=== PATIENT | male | born 1975 | race Caucasian/White ===

== ENCOUNTER 2017-04-25 14:41 | Outpatient (CLI) | payer BC, OTHER | END 2017-04-25 14:42 | disposition critical access hospital (66) | LOC: EMS 14:41 | PROVIDERS: ATTEND Surgery | DX: H53.9 Unspecified visual disturbance (principal); R53.83 Other fatigue | CPT/HCPCS: A0425; A0429 ==

== ENCOUNTER 2017-04-25 14:59 | Inpatient (IN) | payer BC, OTHER ==
[2017-04-25] MEDS ORDERED: PROPARACAINE 0.5% OPHTH DROPS 15 ML EACHEYE STA (15:19)
--- NOTE | 2017-04-25 15:22 | ED Physician Documentation ---
PD HPI FOCAL NEURO - Stated complaint Stated Complaint: R EYE PX/ DIZZY - Chief complaint Chief Complaint: Neuro - History obtained from History obtained from: Patient - History of Present Illness Timing - onset: Other (For the last 2 days he has had pressure in the right eye with difficulty focusing the right eye and he says he has been off balance veering to the left sometimes. It is not associated with headache. He says that his said he was confused today based on the fact that he meant to go into his daughter's room and went into the son's room instead. This is never happened to him before. Other than mild asthma he has no ongoing health issues. ) Review of Systems Ten Systems: 10 systems reviewed and negative Constitutional: reports: Reviewed and negative Nose: reports: Reviewed and negative Cardiac: reports: Reviewed and negative Respiratory: reports: Reviewed and negative PD PAST MEDICAL HISTORY - Past Medical History Past Medical History: No - Present Medications Home Medications: Ambulatory Orders Medication Instructions Recorded Confirmed Albuterol 04/25/17 Fluticasone/Salmeterol [Advair 04/25/17 100-50 Diskus] No Known Home Medications [No 04/25/17 04/25/17 Known Home Medications] - Allergies Allergies/Adverse Reactions: Allergies Allergy/AdvReac Type Severity Reaction Status Date / Time No Known Drug Allergies Allergy Verified 04/25/17 15:12 - Social History Does the pt smoke?: No Does the pt drink ETOH?: No Does the pt have substance abuse?: No - Family History Family history: reports: Non contributory PD ED PE NORMAL - Vitals Vital signs reviewed: Yes - General General: Alert and oriented X 3, No acute distress - HEENT HEENT: PERRL, EOMI, Other ([place] 22R, 25L) - Neck Neck: Supple, no meningeal sign, No bony TTP - Cardiac Cardiac: RRR, No murmur - Respiratory Respiratory: No respiratory distress, Clear bilaterally - Abdomen Abdomen: Normal bowel sounds, Soft, Non tender - Back Back: No CVA TTP, No spinal TTP - Derm Derm: Normal color, Warm and dry - Extremities Extremities: No edema, No calf tenderness / cord - Neuro Neuro: Alert and oriented X 3, Normal speech, Other (Normal Romberg, normal straight gait.) Eye Opening: Spontaneous Motor: Obeys Commands Verbal: Oriented GCS Score: 15 - Psych Psych: Normal mood, Normal affect NIHSS - Time Time: 15:15 - Level of Consciousness Level of consciousness: (0) Alert, Keenly responsive LOC Questions: (0) Answers both Q's correct LOC Commands: (0) Performs both correctly - Gaze Best Gaze: (0) Normal - Visual Visual: (0) No loss - Facial Palsy Facial Palsy: (0) Normal, symmetrical movement - Motor Arms (both separate) Motor Arm (right): (0) No drift Motor Arm (left): (0) No drift - Motor Legs (both separate) Motor Leg (right): (0) No drift Motor Leg (left): (0) No drift - Limb Ataxia Limb Ataxia: (0) Absent - Sensory Sensory: (0) Normal - Best Language Best Language: (0) No aphasia - Dysarthria Dysarthria: (0) Normal - Extinction and Inattention (formally neg Extinction and inattention: (0) No abnormality - Total Score/Results Total Score/Result: 0 Results - Vitals Vitals: Vital Signs - 24 hr 04/25/17 15:09 Temperature 36.9 C Heart Rate 80 Respiratory 16 Rate Blood Pressure 134/82 H O2 Saturation 95 Oxygen O2 Source Room air - EKG (time done) 1804 Rate: Rate (enter#) (57) Rhythm: NSR Sherrill: LAD Intervals: Normal [place] QRS: Normal Ischemia: Normal ST segments Computer interpretation: Agree with computer - Labs Labs: Laboratory Tests 04/25/17 04/25/17 15:45 15:45 WBC 5.0 RBC 5.53 Hgb 15.6 Hct 46.6 MCV 84.2 MCH 28.1 MCHC 33.4 RDW 14.3 Plt Count 184 MPV 8.4 Neut # 2.9 Lymph # 1.2 L Mills # 0.5 Eos # 0.4 Baso # 0.1 Absolute Nucleated RBC 0.01 Nucleated RBC % 0.1 Sodium 141 Potassium 4.2 Chloride 107 Carbon Dioxide 25 Anion Gap 9.0 BUN 15 Creatinine 1.0 Estimated GFR (MDRD) 81 L Glucose 76 Calcium 9.0 Total Bilirubin 0.9 AST 25 ALT 48 Alkaline Phosphatase 73 Total Protein 7.1 Albumin 4.4 Globulin 2.7 Albumin/Globulin Ratio 1.6 Lipase 16 L - Rads (name of study) CT/CTA head Radiology: EMP read contemporaneously (Hypodense lesion in the right thalamus most consistent with an acute stroke, less likely would be mass. There is a little bit of mass-effect.) PD MEDICAL DECISION MAKING - ED course ED course: 42-year-old gentleman with symptoms of pressure behind the right eye, veering to the left and slight confusion over the last 2 days and his stroke scale is negative but regardless is found to have what is likely an acute right thalamic stroke. He was administered aspirin and I spoke with Dr. Degroot for admission at 5:52 PM. Departure - Departure Disposition: 66 [facility] DC/Xfer Clinical Impression: Cerebrovascular accident (CVA) Qualifiers: CVA mechanism: embolism Precerebral and cerebral artery: anterior cerebral artery Laterality of affected vessel: right Qualified Code(s): I63.421 - Cerebral infarction due to embolism of right anterior cerebral artery Condition: Stable
[2017-04-25 16:02] LABS: BASOPHILS # (AUTO) 0.1 10^3/uL (0.0-0.1); BASOPHILS % (AUTO) 1.3 %; EOSINOPHILS # (AUTO) 0.4 10^3/uL (0.0-0.7); EOSINOPHILS % (AUTO) 7.8 %; HGB - HEMOGLOBIN 15.6 g/dL (14.0-18.0); LYMPHOCYTES # (AUTO) 1.2 10^3/uL (1.5-3.5); LYMPHOCYTES % (AUTO) 23.4 %; MEAN CORPUSCULAR HEMOGLOBIN 28.1 pg (27.0-31.0); MEAN CORPUSCULAR HGB CONC 33.4 g/dL (32.0-36.0); MEAN CORPUSCULAR VOLUME 84.2 fL (80.0-94.0); MEAN PLATELET VOLUME 8.4 fL (7.4-11.4); MONOCYTES # (AUTO) 0.5 10^3/uL (0.0-1.0); MONOCYTES % (AUTO) 9.4 %; NEUTROPHILS # (AUTO) 2.9 10^3/uL (1.5-6.6); NEUTROPHILS % (AUTO) 58.1 %; PLT - PLATELET COUNT 184 10^3/uL (130-450); RED BLOOD COUNT 5.53 10^6/uL (4.70-6.10); RED CELL DISTRIBUTION WIDTH 14.3 % (12.0-15.0)
[2017-04-25 16:16] LABS: ALBUMIN 4.4 g/dL (3.2-5.5); ALBUMIN/GLOBULIN RATIO 1.6 (1.0-2.2); BILIRUBIN,TOTAL 0.9 mg/dL (0.2-1.0); TOTAL PROTEIN 7.1 g/dL (6.7-8.2)
[2017-04-25] MEDS ORDERED: IOPAMIDOL-300 100 ML VIAL ONE (16:36)
[2017-04-25] MEDS ORDERED: ASPIRIN CHEW 81 MG TABLET PO STA (17:50)
--- NOTE | 2017-04-25 17:50 | CT Preliminary Report ---
Exam: CT HEAD ANGIO Impression: Head CT 1. There is a roughly 1.3 x 1.3 cm hypodensity centered in the anterior right thalamus. There appears be mild localized mass effect with focal effacement of the third ventricle. No enhancement is demons trated. This probably relates to recent infarction. MRI would be helpful in further evaluation. 2. Otherwise unremarkable head CT. CT angiogram head Unremarkable study. No evidence of occlusion or hemodynamically significant stenosis affecting main b ranches of the anterior or posterior circulations. In addition, no intracranial aneurysm is identifie d. SITE ID: [id number]
[2017-04-25] MEDS ORDERED: oxyCODONE 5 MG TABLET PO PRN (17:53)
[2017-04-25] MEDS ORDERED: PROCHLORPERAZINE 10 MG/2 ML VIAL IVP PRN (17:53)
[2017-04-25] MEDS ORDERED: SODIUM CHLORIDE FLUSH 0.9% 10 ML SYRINGE IVP PRN (17:53)
[2017-04-25] MEDS ORDERED: TEMAZEPAM 15 MG CAPSULE PO PRN (17:53)
--- NOTE | 2017-04-25 18:14 | CT Report ---
CT HEAD WITHOUT AND WITH CONTRAST AND CT ANGIOGRAM HEAD INDICATION: 42-year-old male with 2 day history of feeling off balance and blurred vision in right ey e. Please assess. TECHNIQUE: Head CT Sequential 5 mm axial images were obtained through the brain, prior to and following the CT angiogram . CT angiogram head 80 mL of Isovue-300 contrast were injected at a rapid rate through a large bore, antecubital intraven ous catheter. The head was scanned helically during arterial phase. Data was reconstructed into 0.5 m m axial images. In addition, MIP reconstructions have been generated in multiple projections to allow better assessment of the intracranial arteries. In accordance with CT protocol optimization, one or more of the following dose reduction techniques w ere utilized for this exam: automated exposure control, adjustment of mA and/or KV based on patient s ize, or use of iterative reconstructive technique. COMPARISON: None. FINDINGS: Head CT There is mild generalized prominence of the cerebral cortical sulci. Ventricular size is normal. There is a roughly 1.3 x 1.3 cm hypodense lesion, centered in the anterior right thalamus with possib le extension laterally to involve the posterior limb of the right internal capsule. There appears be mild associated mass effect with focal effacement of the third ventricle. No enhancement of this lesi on is identified on postcontrast sequences. Attenuation of cortex and white matter is otherwise solo l. No intracranial hemorrhage. No enhancing space-occupying mass lesion is demonstrated. There appears be normal intravascular contr ast enhancement in the dural venous sinuses and deep venous structures. Noted is a rounded, roughly 1.5 cm diameter, midline retrocerebellar extra-axial fluid collection. Th is probably represents an arachnoid cyst. There appears be associated mass effect including a scalpin g of the inner table of the overlying squamous occipital bone. No significant mass effect on the cere bellum or vermis. The clinical significance of this presumed posterior fossa arachnoid cyst is doubtf ul. The mastoid air cells and middle ear cavities are clear. The imaged paranasal sinuses appear clear. CT angiogram head Anterior circulation: The internal carotid arteries appear widely patent bilaterally. No ICA aneurysm is demonstrated. The A1 segments of the anterior cerebral arteries are essentially codominant. An anterior communicating a rtery is demonstrated. There appears be good filling of the A2 and distal AMANDA branches bilaterally. N o obvious AMANDA branch occlusion is demonstrated. The middle cerebral arteries are unremarkable. No aneurysm is demonstrated and there is no evidence o f occlusion or hemodynamically significant stenosis affecting main branches of either MCA. There appe ar to be a similar number of opacified M3 and M4 branches bilaterally. Posterior circulation: The vertebral arteries and PICAs appear widely patent. No aneurysm at either PICA origin. The basilar artery, superior cerebellar arteries and posterior cerebral arteries appear widely patent. 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 There is a fairly large l eft posterior communicating artery that supplies the P2 and distal left BUMP GRADER OPERATOR branches. This represents a known anatomical variant ( type left BUMP GRADER OPERATOR). There probably is a tiny right posterior communica ting artery. No aneurysms are identified arising from the basilar artery trunk or apex. IMPRESSION: Head CT 1. There is a roughly 1.3 x 1.3 cm hypodensity centered in the anterior right thalamus. There appears be mild localized mass effect with focal effacement of the third ventricle. No enhancement is demons trated. This probably relates to recent infarction. MRI would be helpful in further evaluation. 2. Otherwise unremarkable head CT. CT angiogram head Unremarkable study. No evidence of occlusion or hemodynamically significant stenosis affecting main b ranches of the anterior or posterior circulations. In addition, no intracranial aneurysm is identifie d. Critical result: A preliminary report for this examination was called to Josue Zapata following assessment on 04/02 at approximately 1748 hrs. Referring Provider Line: [phone] SITE ID: [id number]
[2017-04-25 18:22] LABS: PT - PROTHROMBIN TIME 11.8 secs (9.9-12.6)
[2017-04-25] MEDS ORDERED: ASPIRIN CHEW 81 MG TABLET ONE (18:31)
--- NOTE | 2017-04-25 18:31 | HISTORY & PHYSICAL EXAMINATION ---
Chief Complaint - Chief Complaint Chief Complaint: pressure Behind right eye, confusion, balance issues History of Present Illness - Admitted From Admitted From:: Home - History Obtained From History obtained from: Patient and Dr. Milligan Exam Limitations: None noted - History of Present Illness HPI Comment/Other: Mr. Mati Escalera is a very pleasant 42-year-old gentleman who has been having difficulties since Wednesday morning when he woke. He slept in which was unusual for him and he has been sleeping and since that time, he also has had some slurring of speech and increasing confusion. His last complaint is that his balance seems to be "off". He came to [facility] emergency department where he was evaluated and not felt to be high risk for stroke however CT angiogram found a right thalamic infarction/mass. History - Past Medical History Cardiovascular: reports: None Respiratory: reports: Asthma MRSA Hx?: No - Past Surgical History Other past surgical history: Removal of a cyst from the patient's posterior scalp - Family & Social History Family History: Mother: , Cancer (breast,Multiple cancers throughout maternal side of family), Father: Alive and Well, Hypertension, Other family: CAD, Hyperlipidemia, Hypertension Living arrangement: At home Living Situation: With spouse/s.o. - Substance History Use: Uses substance without health or social issues: Alcohol Abuse: Recurrent use of substance despite neg consequences: NONE Dependence: Experiences withdrawal or developed tolerances: NONE - POLST Patient has POLST: No POLST Status: Full Code Meds/Allgy - Home Medications Home Medications: Ambulatory Orders Medication Instructions Recorded Confirmed Albuterol 04/25/17 Fluticasone/Salmeterol [Advair 04/25/17 100-50 Diskus] No Known Home Medications [No 04/25/17 04/25/17 Known Home Medications] - Allergies Allergies/Adverse Reactions: Allergies Allergy/AdvReac Type Severity Reaction Status Date / Time No Known Drug Allergies Allergy Verified 04/25/17 15:12 Review of Systems - Constitutional Constitutional: denies: Fatigue, Fever, Chills, Malaise - Eyes Eyes: reports: Pain (behind r eye). denies: Irritation, Amaurosis, Blurred vision, Vision loss, Dipolpia - Ears, Nose & Throat Ears, Nose & Throat: reports: Vertigo. denies: Ear pain, Hearing loss, Hearing aids, Tinnitus, Nosebleeds, Dentures - Cardiovascular Cariovascular: denies: Irregular heart rate, Palpitations, Chest pain, Edema, Syncope - Respiratory Respiratory: denies: Cough, Sputum production, Wheezing, Snoring, Hemoptysis, Orthopnea, SOB at rest, SOB with exertion - Gastrointestinal Gastrointestinal: denies: Abdominal pain, Abdominal distention, Constipation, Diarrhea, Change in bowel habits, Rectal bleeding - Genitourinary Genitourinary: denies: Dysuria, Frequency, Urgency, Hematuria - Musculoskeletal Musculoskeletal: denies: Muscle pain, Back pain, Muscle aches, Stiffness - Integumentary Integumentary: denies: Rash, Pruritis, Lesions, Dryness - Neurological Neurological: reports: Memory problems, Other (Patient has been leaning towards the right). denies: General weakness, Focal weakness - Psychiatric Psychiatric: denies: Depression, Anxiety, Suicidal, Hallucinations - Endocrine Endocrine: denies: Polyuria, Polydypsia, Polyphagia - Hematologic/Lymphatic Hematologic/Lymphatic: denies: Anemia, Bruising, Petechiae, Lymphadenopathy - All Other Systems All Other Systems: reports: Reviewed and negative Exam - Vital Signs Reviewed Vital Signs: Yes Vital Signs: Vital Signs x48h Temp Pulse Resp BP Pulse Ox 04/25/17 15:09 36.9 C 80 16 134/82 H 95 - Physical Exam General Appearance: positive: No acute distress, Alert Eyes Bilateral: positive: Normal inspection, PERRL, EOMI, No lid inflammation, Conjunctivae nml, No scleral icterus ENT: positive: ENT inspection nml, Pharynx nml, No signs of dehydration Neck: positive: Nml inspection, Thyroid nml, No JVD, Trachea midline. negative : Thyromegaly Respiratory: positive: Chest non-tender, No respiratory distress, Breath sounds nml. negative: Wheezes, Rales, Rhonchi Cardiovascular: positive: Regular rate & rhythm, No murmur, No gallop Peripheral Pulses: positive: 2+ Abdomen: positive: Non-tender, No organomegaly, Nml bowel sounds, No distention. negative: Guarding, Rebound Back: positive: Nml inspection. negative: CVA tenderness (R), CVA tenderness (L ) Skin: positive: Color nml, No rash, Warm, Dry. negative: Cyanosis Extremities: positive: Non-tender, Full ROM, Nml appearance, No pedal edema Neurologic/Psychiatric: positive: Oriented x3, CN's nml (2-12), Motor nml, Sensation nml, Mood/affect nml Conclusion/Plan - Problem List (1) Thalamic infarct, acute Conclusion/Plan: We will admit the patient to a medical surgical bed, will obtain a carotid Doppler, MRI of the brain, transthoracic echocardiogram and CT angiogram of the head. We will continue the patient on aspirin for anticoagulation and continue him on his home medications for asthma. (2) History of asthma Conclusion/Plan: No evidence of asthma at this time. We will continue the patient on his albuterol and Advair from home. - Lab Results Fish Bones: 04/25/17 15:45 04/25/17 15:45 - Diagnostic Imaging Results Diagnostic Imaging Results: positive: Final report reviewed Diagnostic Imaging Results Comments: EXAM: [id number] CT/HEADANG (21114) CT HEAD WITHOUT AND WITH CONTRAST AND CT ANGIOGRAM HEAD INDICATION: 42-year-old male with 2 day history of feeling off balance and blurred vision in right eye. Please assess. TECHNIQUE: Head CT Sequential 5 mm axial images were obtained through the brain, prior to and following the CT angiogram. CT angiogram head 80 mL of Isovue-300 contrast were injected at a rapid rate through a large bore , antecubital intravenous catheter. The head was scanned helically during arterial phase. Data was reconstructed into 0.5 mm axial images. In addition, MIP reconstructions have been generated in multiple projections to allow better assessment of the intracranial arteries. In accordance with CT protocol optimization, one or more of the following dose reduction techniques were utilized for this exam: automated exposure control, adjustment of mA and/or KV based on patient size, or use of iterative reconstructive technique. COMPARISON: None. FINDINGS: Head CT There is mild generalized prominence of the cerebral cortical sulci. Ventricular size is normal. There is a roughly 1.3 x 1.3 cm hypodense lesion, centered in the anterior right thalamus with possible extension laterally to involve the posterior limb of the right internal capsule. There appears be mild associated mass effect with focal effacement of the third ventricle. No enhancement of this lesion is identified on postcontrast sequences. Attenuation of cortex and white matter is otherwise normal. No intracranial hemorrhage. No enhancing space-occupying mass lesion is demonstrated. There appears be normal intravascular contrast enhancement in the dural venous sinuses and deep venous structures. Noted is a rounded, roughly 1.5 cm diameter, midline retrocerebellar extra- axial fluid collection. This probably represents an arachnoid cyst. There appears be associated mass effect including a scalping of the inner table of the overlying squamous occipital bone. No significant mass effect on the cerebellum or vermis. The clinical significance of this presumed posterior fossa arachnoid cyst is doubtful. The mastoid air cells and middle ear cavities are clear. The imaged paranasal sinuses appear clear. CT angiogram head Anterior circulation: The internal carotid arteries appear widely patent bilaterally. No ICA aneurysm is demonstrated. The A1 segments of the anterior cerebral arteries are essentially codominant. An anterior communicating artery is demonstrated. There appears be good filling of the A2 and distal AMANDA branches bilaterally. No obvious AMANDA branch occlusion is demonstrated. The middle cerebral arteries are unremarkable. No aneurysm is demonstrated and there is no evidence of occlusion or hemodynamically significant stenosis affecting main branches of either MCA. There appear to be a similar number of opacified M3 and M4 branches bilaterally. Posterior circulation: The vertebral arteries and PICAs appear widely patent. No aneurysm at either PICA origin. The basilar artery, superior cerebellar arteries and posterior cerebral arteries appear widely patent. 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 There is a fairly large left posterior communicating artery that supplies the P2 and distal left CONTRACT TECHNICAL WRITER branches. This represents a known anatomical variant ( type left CONTRACT TECHNICAL WRITER). There probably is a tiny right posterior communicating artery. No aneurysms are identified arising from the basilar artery trunk or apex. IMPRESSION: Head CT 1. There is a roughly 1.3 x 1.3 cm hypodensity centered in the anterior right thalamus. There appears be mild localized mass effect with focal effacement of the third ventricle. No enhancement is demonstrated. This probably relates to recent infarction. MRI would be helpful in further evaluation. 2. Otherwise unremarkable head CT. CT angiogram head Unremarkable study. No evidence of occlusion or hemodynamically significant stenosis affecting main branches of the anterior or posterior circulations. In addition, no intracranial aneurysm is identified. - EKG Results EKG Interpreted Independently: Yes EKG Comparison: No prior EKG EKG Findings: Normal sinus rhythm Core Measures - Anticipated LOS I expect patient to be DC'd or transferred within 96 hours.: Yes - DVT/VTE - Prophylaxis VTE/DVT Device ordered at admit?: Yes
[2017-04-25] MEDS: ATORVASTATIN 40 MG TABLET PO SCH (20:16)
--- NOTE | 2017-04-25 21:19 | Ultrasound Preliminary Report ---
Exam: US CAROTID DOPPLER COMPLETE IMPRESSION: No hemodynamically significant stenoses. Validated velocity measurements with angiographic measurements and velocity criteria are extrapolated from diameter data as defined by the Society of Radiologists in Ultrasound Consensus Conference Radi ology 2003; 229;340-346. RADIA SITE ID: [id number]
--- NOTE | 2017-04-25 21:37 | Ultrasound Report ---
EXAM: CAROTID DOPPLER ULTRASOUND EXAM DATE: 04/25/2017 08:20 PM. CLINICAL HISTORY: Right thalamic infarct. COMPARISON: None. TECHNIQUE: Real-time sonographic vascular imaging was performed by the flight service agent through the caroti d arterial system with a linear transducer utilizing color-flow, Doppler flow and spectral analysis. Multiple architectural representative static images were saved for review. FINDINGS: Right: RCCA Prox: PSV 88.2 cm/sec. RCCA Dist: PSV 60.8 cm/sec, EDV 19.1 cm/sec. RECA: PSV 83.7 cm/sec. R Bulb: PSV 39.9 cm/sec, EDV 0.4 cm/sec, ICA/CCA ratio 0.7. FELIBERTO Prox: PSV 63.3 cm/sec, EDV 29.3 cm/sec, ICA/CCA ratio 1.0. FELIBERTO Mid: PSV 67.6 cm/sec, EDV 31.0 cm/sec, ICA/CCA ratio 1.1, . FELIBERTO Dist: PSV 79.0 cm/sec, EDV 38.3 cm/sec, ICA/CCA ratio 1.3. RVA: PSV 45.5 cm/sec. RVA flow direction: Antegrade. Left: LCCA Prox: PSV 82.4 cm/sec. LCCA Dist: PSV 55.7 cm/sec, EDV 16.6 cm/sec. LECA: PSV 54.8 cm/sec. L Bulb: PSV 45.5 cm/sec, EDV 11.1 cm/sec, ICA/CCA ratio 0.8. LICA Prox: PSV 48.2 cm/sec, EDV 17.9 cm/sec, ICA/CCA ratio 0.9. LICA Mid: PSV 56.0 cm/sec, EDV 26.3 cm/sec, ICA/CCA ratio 1.0. LICA Dist: PSV 52.1 cm/sec, EDV 28 cm/sec, ICA/CCA ratio 0.9. LVA: PSV 44.8 cm/sec. LVA flow direction: Antegrade. Other: Mild calcified plaque bilaterally, left greater than right. IMPRESSION: No hemodynamically significant stenoses. Validated velocity measurements with angiographic measurements and velocity criteria are extrapolated from diameter data as defined by the Society of Radiologists in Ultrasound Consensus Conference Radi ology 2003; 229;340-346. RADIA Referring Provider Line: [phone] SITE ID: [id number]
[2017-04-25] MEDS: SODIUM CHLORIDE FLUSH 0.9% 10 ML SYRINGE IVP SCH (23:45)
[2017-04-26 06:00] LABS: HGB - HEMOGLOBIN 15.4 g/dL (14.0-18.0); MEAN CORPUSCULAR HEMOGLOBIN 28.4 pg (27.0-31.0); MEAN CORPUSCULAR HGB CONC 33.7 g/dL (32.0-36.0); MEAN CORPUSCULAR VOLUME 84.3 fL (80.0-94.0); MEAN PLATELET VOLUME 8.4 fL (7.4-11.4); RED BLOOD COUNT 5.41 10^6/uL (4.70-6.10); RED CELL DISTRIBUTION WIDTH 14.5 % (12.0-15.0); WHITE BLOOD COUNT 4.7 x10^3/uL (4.8-10.8)
[2017-04-26 06:09] LABS: CALCIUM 8.6 mg/dL (8.5-10.3); CREATININE 0.9 mg/dL (0.6-1.2)
[2017-04-26] MEDS ORDERED: IOPAMIDOL-300 100 ML VIAL IVP ONE (07:24)
[2017-04-26] MEDS ORDERED: ASPIRIN 300 MG SUPP PR SCH (09:00)
[2017-04-26] MEDS: ASPIRIN CHEW 81 MG TABLET PO SCH (09:40)
[2017-04-26] MEDS: LISINOPRIL 5 MG TABLET PO SCH (09:40)
[2017-04-26] MEDS: SODIUM CHLORIDE FLUSH 0.9% 10 ML SYRINGE IVP SCH ×2 (09:41→18:36)
[2017-04-26] MEDS: POLYETHYLENE GLYCOL 3350 17 GM PACKET PO SCH (09:42)
[2017-04-26] MEDS ORDERED: ALBUTEROL NEB 2.5 MG/3 ML INH PRN (10:06)
--- NOTE | 2017-04-26 12:20 | MRI Preliminary Report ---
Exam: MRI BRAIN W/O Impression: 1. Follow-up MRI confirms that the lesion in anterior right thalamus relates to recent (probably 7 da ys old or less closing. Arch and appear in very mild localized mass effect is demonstrated with parti al effacement of the third ventricle. No beginning hemorrhage is identified. The infarction also appe ars to involve the right mamillary body (see image 104 of series 305 and image 13 of series 601 closi ng.. 2. Also demonstrated are small foci of encephalomalacia in the right cerebellum, consistent with the sequela of remote, minor, embolic type ischemic infarctions. The etiology for these recent and remote infarctions in this young individual (42 years closing. It i s unclear. No evidence of vasculitis or other intracranial arterial pathology on recent head CTA. Con shop tech further assessment with neck CTA or MRA. 3. A minor amount of white matter disease is identified in the supratentorial brain. The etiology is uncertain. Differential diagnostic considerations would include virtually the entire gambling and whi te matter disease. However, the clinical significance is doubtful. SITE ID: [id number]
--- NOTE | 2017-04-26 12:34 | MRI Report ---
MRI BRAIN WITHOUT CONTRAST INDICATION: 42-year-old male with complaints of pressure behind right eye, confusion, slurred speech and balance issues. Has hypodensity in the right thalamus on head CT, concerning for recent infarctio n. MRI has been requested in further evaluation. TECHNIQUE: 1. T1 sagittal and fat-saturated T2 coronal. 2. Axial T1 MP RAGE, FLAIR, T2, T2* and DWI. COMPARISON: Head CT 04/25/2017. FINDINGS: Ventricular size is normal. There is a roughly 1.7 x 1.8 cm, confluent region of T2/FLAIR hyperintensity and diffusion restrictio n in the anterior aspect of the right thalamus. Laterally there probably is extension to involve the posterior limb of the internal capsule. There is no surrounding edema. There is mild localized mass e ffect with partial effacement of the third ventricle. Imaging findings are consistent with acute to e farida subacute infarction. The infarction also appears to involve the right mamillary body. No other diffusion restriction is demonstrated. There appear to be flow voids for the main intracranial arteries. No evidence of acute or chronic hemorrhage on T2*GRE sequence. A very mild amount of white matter disease is identified in the supratentorial brain, manifested as s mall T2 hyperintensities that are scattered throughout the deep and subcortical white matter in the f rontal lobes. A small (4 x 2 mm) T2 hyperintense/T1 hypointense focus is identified in the left thalamus. However, the high T2 signal completely suppresses on the axial T2 FLAIR sequence, suggesting that this represe nts a dilated perivascular space rather than gliosis or other pathology. A roughly 6.5 x 2.5 mm focus of encephalomalacia is identified in the mesial, posterior right cerebel lum (see image 8 of series 601 and image 26 of series 901). Consistent with the sequela of remote, mi nor, embolic type ischemic infarction. In addition, 2 subtle, tiny T2 hyperintensities are seen in th e mid right cerebellum (see image 7 of series 601 and image 23 of series 901). Also, probably the seq uela of remote, minor, embolic-type infarctions. No abnormal extraaxial fluid collection. No midline shift. Limited assessment of the orbits reveals no gross pathology. There is minimal mucosal thickening in the left maxillary sinus and in a few ethmoid air cells. The p aranasal sinuses are otherwise clear. No mastoid or middle ear effusion is demonstrated. IMPRESSION: 1. Follow-up MRI confirms that the lesion in anterior right thalamus relates to recent (probably 7 da ys old or less) infarction. No complicating hemorrhage. Very mild localized mass effect is demonstrat ed with partial effacement of the third ventricle. The infarction also appears to involve the right m amillary body (see image 104 of series 305 and image 13 of series 601). 2. Also demonstrated are small foci of encephalomalacia in the right cerebellum, consistent with the sequela of remote, minor, embolic type ischemic infarctions. The etiology for these recent and remote infarctions in this young individual is unclear. No evidence of vasculitis or other intracranial arterial pathology on recent head CTA. Consider further assessme nt with neck CTA or MRA. 3. A minor amount of white matter disease is identified in the supratentorial brain. The etiology is uncertain. Differential diagnostic considerations would include virtually the entire gamut of white m atter disease. However, the clinical significance is doubtful. Referring Provider Line: [phone] SITE ID: [id number]
[2017-04-26] MEDS ORDERED: ALBUTEROL NEB 2.5 MG/3 ML INH SCH (13:00)
--- NOTE | 2017-04-26 18:30 | PROVIDER PROGRESS NOTE ---
Subjective - Prog Note Date Prog Note Date: 04/26/17 Prog Note Time: 16:50 - Subjective Pt reports feeling: Improved (The patient says his confusion is a little bit better today and he was a little bit less wobbly when he ambulated to the bathroom. He denies any pain, shortness of breath, fever, or chills.) Current Medications - Current Medications Current Medications: Albuterol, aspirin, atorvastatin, budesonide, formoterol, lisinopril, oxycodone , polyethylene glycol, Compazine, sodium chloride, temazepam Objective - Vital Signs/Intake & Output Reviewed Vital Signs: Yes Vital Signs: Vital Signs x48h Temp Pulse Pulse Resp BP Pulse Ox 04/26/17 15:48 36.5 C 67 20 107/77 93 04/26/17 13:00 36.5 C 68 18 124/84 H 95 Intake & Output: Intake & Output 04/23/17 04/24/17 04/25/17 04/26/17 23:59 23:59 23:59 23:59 Intake Total 150 340 Balance 150 340 - Objective General Appearance: positive: No acute distress, Alert Eyes Bilateral: positive: Normal inspection, PERRL, EOMI, No lid inflammation, Conjunctivae nml, No scleral icterus ENT: positive: ENT inspection nml, Pharynx nml, No signs of dehydration Neck: positive: Nml inspection, Thyroid nml, No JVD, Trachea midline. negative : Thyromegaly Respiratory: positive: Chest non-tender, No respiratory distress, Breath sounds nml. negative: Wheezes, Rales, Rhonchi Cardiovascular: positive: Regular rate & rhythm, No murmur, No gallop Abdomen: positive: Non-tender, No organomegaly, Nml bowel sounds, No distention. negative: Tenderness Back: positive: Nml inspection. negative: CVA tenderness (R), CVA tenderness (L ) Skin: positive: Color nml, No rash, Warm, Dry. negative: Cyanosis Extremities: positive: Non-tender, Full ROM, Nml appearance. negative: No pedal edema Neurologic/Psychiatric: positive: Oriented x3, CN's nml (2-12), Motor nml, Sensation nml, Mood/affect nml - Lab Results Fish Bones: 04/26/17 05:33 04/26/17 05:33 Other Labs: Lab Results x24hrs 04/26/17 04/26/17 04/25/17 Range/Units 05:33 05:33 19:22 WBC 4.7 L (4.8-10.8) x10^3/uL RBC 5.41 (4.70-6.10) 10^6/uL Hgb 15.4 (14.0-18.0) g/dL Hct 45.6 (42.0-52.0) % MCV 84.3 (80.0-94.0) fL MCH 28.4 (27.0-31.0) pg MCHC 33.7 (32.0-36.0) g/dL RDW 14.5 (12.0-15.0) % Plt Count 168 (130-450) 10^3/uL MPV 8.4 (7.4-11.4) fL Sodium 138 (135-145) mmol/L Potassium 4.0 (3.5-5.0) mmol/L Chloride 110 (101-111) mmol/L Carbon Dioxide 22 (21-32) mmol/L Anion Gap 6.0 (6-13) BUN 14 (6-20) mg/dL Creatinine 0.9 (0.6-1.2) mg/dL Estimated GFR (MDRD) 92 (>89) Glucose 94 (70-100) mg/dL POC Whole Bld Glucose 95 (70 - 100) mg/dL Calcium 8.6 (8.5-10.3) mg/dL - Diagnostic Imaging Diagnostic Imaging Results: positive: Final report reviewed Diagnostic Imaging Comments: CT HEAD WITHOUT AND WITH CONTRAST AND CT ANGIOGRAM HEAD INDICATION: 42-year-old male with 2 day history of feeling off balance and blurred vision in right eye. Please assess. TECHNIQUE: Head CT Sequential 5 mm axial images were obtained through the brain, prior to and following the CT angiogram. CT angiogram head 80 mL of Isovue-300 contrast were injected at a rapid rate through a large bore , antecubital intravenous catheter. The head was scanned helically during arterial phase. Data was reconstructed into 0.5 mm axial images. In addition, MIP reconstructions have been generated in multiple projections to allow better assessment of the intracranial arteries. In accordance with CT protocol optimization, one or more of the following dose reduction techniques were utilized for this exam: automated exposure control, adjustment of mA and/or KV based on patient size, or use of iterative reconstructive technique. COMPARISON: None. FINDINGS: Head CT There is mild generalized prominence of the cerebral cortical sulci. Ventricular size is normal. There is a roughly 1.3 x 1.3 cm hypodense lesion, centered in the anterior right thalamus with possible extension laterally to involve the posterior limb of the right internal capsule. There appears be mild associated mass effect with focal effacement of the third ventricle. No enhancement of this lesion is identified on postcontrast sequences. Attenuation of cortex and white matter is otherwise normal. No intracranial hemorrhage. No enhancing space-occupying mass lesion is demonstrated. There appears be normal intravascular contrast enhancement in the dural venous sinuses and deep venous structures. Noted is a rounded, roughly 1.5 cm diameter, midline retrocerebellar extra- axial fluid collection. This probably represents an arachnoid cyst. There appears be associated mass effect including a scalping of the inner table of the overlying squamous occipital bone. No significant mass effect on the cerebellum or vermis. The clinical significance of this presumed posterior fossa arachnoid cyst is doubtful. The mastoid air cells and middle ear cavities are clear. The imaged paranasal sinuses appear clear. CT angiogram head Anterior circulation: The internal carotid arteries appear widely patent bilaterally. No ICA aneurysm is demonstrated. The A1 segments of the anterior cerebral arteries are essentially codominant. An anterior communicating artery is demonstrated. There appears be good filling of the A2 and distal AMANDA branches bilaterally. No obvious AMANDA branch occlusion is demonstrated. The middle cerebral arteries are unremarkable. No aneurysm is demonstrated and there is no evidence of occlusion or hemodynamically significant stenosis affecting main branches of either MCA. There appear to be a similar number of opacified M3 and M4 branches bilaterally. Posterior circulation: The vertebral arteries and PICAs appear widely patent. No aneurysm at either PICA origin. The basilar artery, superior cerebellar arteries and posterior cerebral arteries appear widely patent. 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 There is a fairly large left posterior communicating artery that supplies the P2 and distal left JOB COUNSELOR branches. 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 There probably is a tiny right posterior communicating artery. No aneurysms are identified arising from the basilar artery trunk or apex. IMPRESSION: Head CT 1. There is a roughly 1.3 x 1.3 cm hypodensity centered in the anterior right thalamus. There appears be mild localized mass effect with focal effacement of the third ventricle. No enhancement is demonstrated. This probably relates to recent infarction. MRI would be helpful in further evaluation. 2. Otherwise unremarkable head CT. CT angiogram head Unremarkable study. No evidence of occlusion or hemodynamically significant stenosis affecting main branches of the anterior or posterior circulations. In addition, no intracranial aneurysm is identified. Critical result: A preliminary report for this examination was called to Josue Zapata following assessment on at approximately 1748 hrs. EXAM: CAROTID DOPPLER ULTRASOUND EXAM DATE: 04/25/2017 08:20 PM. CLINICAL HISTORY: Right thalamic infarct. COMPARISON: None. TECHNIQUE: Real-time sonographic vascular imaging was performed by the steerer through the carotid arterial system with a linear transducer utilizing color-flow, Doppler flow and spectral analysis. Multiple data entry representative static images were saved for review. FINDINGS: Right: RCCA Prox: PSV 88.2 cm/sec. RCCA Dist: PSV 60.8 cm/sec, EDV 19.1 cm/sec. RECA: PSV 83.7 cm/sec. R Bulb: PSV 39.9 cm/sec, EDV 0.4 cm/sec, ICA/CCA ratio 0.7. FELIBERTO Prox: PSV 63.3 cm/sec, EDV 29.3 cm/sec, ICA/CCA ratio 1.0. FELIBERTO Mid: PSV 67.6 cm/sec, EDV 31.0 cm/sec, ICA/CCA ratio 1.1, . FELIBERTO Dist: PSV 79.0 cm/sec, EDV 38.3 cm/sec, ICA/CCA ratio 1.3. RVA: PSV 45.5 cm/sec. RVA flow direction: Antegrade. Left: LCCA Prox: PSV 82.4 cm/sec. LCCA Dist: PSV 55.7 cm/sec, EDV 16.6 cm/sec. LECA: PSV 54.8 cm/sec. L Bulb: PSV 45.5 cm/sec, EDV 11.1 cm/sec, ICA/CCA ratio 0.8. LICA Prox: PSV 48.2 cm/sec, EDV 17.9 cm/sec, ICA/CCA ratio 0.9. LICA Mid: PSV 56.0 cm/sec, EDV 26.3 cm/sec, ICA/CCA ratio 1.0. LICA Dist: PSV 52.1 cm/sec, EDV 28 cm/sec, ICA/CCA ratio 0.9. LVA: PSV 44.8 cm/sec. LVA flow direction: Antegrade. Other: Mild calcified plaque bilaterally, left greater than right. IMPRESSION: No hemodynamically significant stenoses. Validated velocity measurements with angiographic measurements and velocity criteria are extrapolated from diameter data as defined by the Society of Radiologists in Ultrasound Consensus Conference Radiology 2003; 229;340-346. EXAM: [id number] MRI/BRWO ([id number]) MRI BRAIN WITHOUT CONTRAST INDICATION: 42-year-old male with complaints of pressure behind right eye, confusion, slurred speech and balance issues. Has hypodensity in the right thalamus on head CT, concerning for recent infarction. MRI has been requested in further evaluation. TECHNIQUE: 1. T1 sagittal and fat-saturated T2 coronal. 2. Axial T1 MP RAGE, FLAIR, T2, T2* and DWI. COMPARISON: Head CT 04/25/2017. FINDINGS: Ventricular size is normal. There is a roughly 1.7 x 1.8 cm, confluent region of T2/FLAIR hyperintensity and diffusion restriction in the anterior aspect of the right thalamus. Laterally there probably is extension to involve the posterior limb of the internal capsule. There is no surrounding edema. There is mild localized mass effect with partial effacement of the third ventricle. Imaging findings are consistent with acute to early subacute infarction. The infarction also appears to involve the right mamillary body. No other diffusion restriction is demonstrated. There appear to be flow voids for the main intracranial arteries. No evidence of acute or chronic hemorrhage on T2*GRE sequence. A very mild amount of white matter disease is identified in the supratentorial brain, manifested as small T2 hyperintensities that are scattered throughout the deep and subcortical white matter in the frontal lobes. A small (4 x 2 mm) T2 hyperintense/T1 hypointense focus is identified in the left thalamus. However , the high T2 signal completely suppresses on the axial T2 FLAIR sequence, suggesting that this represents a dilated perivascular space rather than gliosis or other pathology. A roughly 6.5 x 2.5 mm focus of encephalomalacia is identified in the mesial, posterior right cerebellum (see image 8 of series 601 and image 26 of series 901). Consistent with the sequela of remote, minor, embolic type ischemic infarction. In addition, 2 subtle, tiny T2 hyperintensities are seen in the mid right cerebellum (see image 7 of series 601 and image 23 of series 901). Also, probably the sequela of remote, minor, embolic-type infarctions. No abnormal extraaxial fluid collection. No midline shift. Limited assessment of the orbits reveals no gross pathology. There is minimal mucosal thickening in the left maxillary sinus and in a few ethmoid air cells. The paranasal sinuses are otherwise clear. No mastoid or middle ear effusion is demonstrated. IMPRESSION: 1. Follow-up MRI confirms that the lesion in anterior right thalamus relates to recent (probably 7 days old or less) infarction. No complicating hemorrhage. Very mild localized mass effect is demonstrated with partial effacement of the third ventricle. The infarction also appears to involve the right mamillary body (see image 104 of series 305 and image 13 of series 601 ). 2. Also demonstrated are small foci of encephalomalacia in the right cerebellum , consistent with the sequela of remote, minor, embolic type ischemic infarctions. The etiology for these recent and remote infarctions in this young individual is unclear. No evidence of vasculitis or other intracranial arterial pathology on recent head CTA. Consider further assessment with neck CTA or MRA. 3. A minor amount of white matter disease is identified in the supratentorial brain. The etiology is uncertain. Differential diagnostic considerations would include virtually the entire gamut of white matter disease. However, the clinical significance is doubtful. Referring Provider Line: [phone] A transthoracic ultrasound showed essentially normal left ventricular ejection fraction however an atrial septal defect measuring approximately 4 mm in diameter was found. Assessment/Plan - Problem List (1) Thalamic infarct, acute Impression: The patient underwent a brain MRI, CT scan with and without contrast of the brain, carotid ultrasound, and an echocardiogram today. The echocardiogram found a 4 mm atrial septal defect which may be the source of the patient's clots. The MRI also found several small lesions consistent with thromboses. At this time we are working on transferring the patient over to the [facility] for repair of the atrial septal defect. I have been in touch with Dr. Easton Treviño of cardiology. (2) History of asthma Impression: The patient has not been short of breath and has been comfortable. We are continuing his home asthma medications.
[2017-04-26] MEDS: ATORVASTATIN 40 MG TABLET PO SCH (20:05)
[2017-04-26] MEDS: FORMOTEROL FUMARATE NEB 20 MCG/2 ML INH SCH (20:50)
[2017-04-26] MEDS: BUDESONIDE 0.5 MG/2 ML NEB INH SCH (20:50)
[2017-04-27] MEDS: SODIUM CHLORIDE FLUSH 0.9% 10 ML SYRINGE IVP SCH ×4 (00:51→23:31)
[2017-04-27 05:52] LABS: HGB - HEMOGLOBIN 15.6 g/dL (14.0-18.0); MEAN CORPUSCULAR HEMOGLOBIN 28.3 pg (27.0-31.0); MEAN CORPUSCULAR HGB CONC 33.5 g/dL (32.0-36.0); MEAN CORPUSCULAR VOLUME 84.3 fL (80.0-94.0); MEAN PLATELET VOLUME 8.2 fL (7.4-11.4); RED BLOOD COUNT 5.52 10^6/uL (4.70-6.10); WHITE BLOOD COUNT 5.9 x10^3/uL (4.8-10.8)
[2017-04-27 05:58] LABS: CREATININE 0.9 mg/dL (0.6-1.2)
[2017-04-27] MEDS: LISINOPRIL 5 MG TABLET PO SCH (08:58)
[2017-04-27] MEDS: ASPIRIN CHEW 81 MG TABLET PO SCH (08:59)
[2017-04-27] MEDS: POLYETHYLENE GLYCOL 3350 17 GM PACKET PO SCH (09:04)
[2017-04-27] MEDS: BUDESONIDE 0.5 MG/2 ML NEB INH SCH ×4 (09:04→12:15)
[2017-04-27] MEDS: FORMOTEROL FUMARATE NEB 20 MCG/2 ML INH SCH ×2 (11:39→12:15)
--- NOTE | 2017-04-27 19:58 | PROVIDER PROGRESS NOTE ---
Subjective - Prog Note Date Prog Note Date: 04/27/17 Prog Note Time: 12:00 - Subjective Pt reports feeling: No change Subjective: Bradly denies any further symptoms or increased weakness. He denies SOB, chest pain, N/V or a new cough. He claims to be eating well. Current Medications - Current Medications Current Medications: Active Medications Albuterol () 2.5 mg INH RTQ6H PRN PRN Reason: Wheezing Last Admin: 04/26/17 20:49 Dose: 2.5 mg Aspirin (St Yuriy Aspirin) 162 mg PO DAILY [facility] Last Admin: 04/28/17 09:10 Dose: 162 mg Atorvastatin Calcium (Lipitor) 80 mg PO QPM [facility] Last Admin: 04/27/17 21:00 Dose: 80 mg Budesonide (Pulmicort) 0.5 mg INH RTBID [facility] Last Admin: 04/27/17 11:39 Dose: Not Given Budesonide (Pulmicort) 0.5 mg INH RTBID [facility] Last Admin: 04/28/17 09:50 Dose: 0.5 mg Formoterol Fumarate (Perforomist) 20 mcg INH RTBID [facility] Last Admin: 04/28/17 09:50 Dose: 20 mcg Lisinopril (Zestril) 10 mg PO DAILY [facility] Last Admin: 04/28/17 09:10 Dose: 10 mg Oxycodone HCl (Roxicodone) 5 mg PO Q4HR PRN PRN Reason: Pain 5 to 7 Polyethylene Glycol (Miralax) 17 gm PO DAILY [facility] Last Admin: 04/28/17 09:13 Dose: Not Given Prochlorperazine Edisylate (Compazine Inj) 10 mg IVP Q6HR PRN PRN Reason: Nausea / Vomiting Sodium Chloride (Normal Saline Flush 0.9%) 10 ml IVP PRN PRN PRN Reason: NEEDED PER PROVIDER ORDERS Sodium Chloride (Normal Saline Flush 0.9%) 10 ml IVP 0100,0900,1700 [facility] Last Admin: 04/27/17 23:31 Dose: 10 ml Temazepam (Restoril) 15 mg PO QPM PRN PRN Reason: Insomnia Albuterol 2.5 mg INH Q6H PRN 04/25/17 Fluticasone/Salmeterol [Advair 100-50 Diskus] 1 inh INH BID 04/25/17 Fluticasone [Flonase] 1 sprays ELDON DAILY 04/26/17 Objective - Vital Signs/Intake & Output Reviewed Vital Signs: Yes Vital Signs: Vital Signs x48h Temp Pulse Pulse Resp BP Pulse Ox 04/27/17 15:39 36.5 C 64 20 112/72 93 04/27/17 12:15 80 14 Intake & Output: Intake & Output 04/24/17 04/25/17 04/26/17 04/27/17 23:59 23:59 23:59 23:59 Intake Total 458 988 6746 Balance 611 606 2458 - Objective General Appearance: positive: No acute distress, Alert Eyes Bilateral: positive: Normal inspection, PERRL ENT: positive: ENT inspection nml, Pharynx nml, No signs of dehydration Neck: positive: Nml inspection, Thyroid nml Respiratory: positive: Chest non-tender, No respiratory distress, Breath sounds nml Cardiovascular: positive: Regular rate & rhythm, No gallop, Systolic murmur, Decreased pulse(s) Peripheral Pulses: 1+ Radial (R), 1+ Radial (L) Abdomen: positive: Non-tender, No organomegaly, Nml bowel sounds, No distention Back: positive: Nml inspection Skin: positive: No rash, Warm, Dry Extremities: positive: Non-tender, Full ROM, Nml appearance, No pedal edema Neurologic/Psychiatric: positive: Oriented x3, CN's nml (2-12), Motor nml, Sensation nml, Depressed mood/affect Reflexes: Bicep (R): 3+, Bicep (L): 3+ - Lab Results Fish Bones: 04/28/17 05:30 04/28/17 05:30 Other Labs: Lab Results x24hrs 04/27/17 04/27/17 Range/Units 05:42 05:42 WBC 5.9 (4.8-10.8) x10^3/uL RBC 5.52 (4.70-6.10) 10^6/uL Hgb 15.6 (14.0-18.0) g/dL Hct 46.6 (42.0-52.0) % MCV 84.3 (80.0-94.0) fL MCH 28.3 (27.0-31.0) pg MCHC 33.5 (32.0-36.0) g/dL RDW 14.0 (12.0-15.0) % Plt Count 173 (130-450) 10^3/uL MPV 8.2 (7.4-11.4) fL Sodium 136 (135-145) mmol/L Potassium 4.1 (3.5-5.0) mmol/L Chloride 106 (101-111) mmol/L Carbon Dioxide 21 (21-32) mmol/L Anion Gap 9.0 (6-13) BUN 12 (6-20) mg/dL Creatinine 0.9 (0.6-1.2) mg/dL Estimated GFR (MDRD) 92 (>89) Glucose 97 (70-100) mg/dL Calcium 9.0 (8.5-10.3) mg/dL - Diagnostic Imaging Diagnostic Imaging Results: positive: Final report reviewed Assessment/Plan - Problem List (1) Cerebrovascular accident (CVA) Impression: A head MRI showed several small lesions consistent with thromboses, which is consistent with patient's presenting symptoms. He origionally presented with right sided weakness, altered mental status, and lethargy. These symptoms are improved. Plan: Continue to monitor and continue Lipitor, Lisinopril. Qualifiers: CVA mechanism: embolism Precerebral and cerebral artery: anterior cerebral artery Laterality of affected vessel: right Qualified Code(s): I63.421 - Cerebral infarction due to embolism of right anterior cerebral artery (2) History of asthma Impression: The patient has a history of this and has clear lungs on exam. Plan: Continue to monitor vital signs and signs of respiratory distress. (3) Thalamic infarct, acute Impression: The patient underwent a brain MRI, CT scan with and without contrast of the brain, carotid ultrasound, and an echocardiogram today. The echocardiogram found a 4 mm atrial septal defect which may be the source of the patient's clots. The MRI also found several small lesions consistent with thromboses. The transfer was delayed due to difficulty getting Echo imaging over to the [facility]. The patient will likely undergo a repair of the atrial septal defect. Plan: Dr. Easton Treviño of cardiology will be the accepting MD when a bed opens up as they have accepted him.
[2017-04-27] MEDS: ATORVASTATIN 40 MG TABLET PO SCH (21:00)
[2017-04-28 05:46] LABS: CALCIUM 8.9 mg/dL (8.5-10.3)
[2017-04-28 05:50] LABS: HGB - HEMOGLOBIN 15.9 g/dL (14.0-18.0); MEAN CORPUSCULAR HEMOGLOBIN 28.1 pg (27.0-31.0); MEAN CORPUSCULAR HGB CONC 33.2 g/dL (32.0-36.0); MEAN CORPUSCULAR VOLUME 84.6 fL (80.0-94.0); MEAN PLATELET VOLUME 8.6 fL (7.4-11.4); RED BLOOD COUNT 5.68 10^6/uL (4.70-6.10); RED CELL DISTRIBUTION WIDTH 14.2 % (12.0-15.0); WHITE BLOOD COUNT 5.6 x10^3/uL (4.8-10.8)
[2017-04-28] MEDS: ASPIRIN CHEW 81 MG TABLET PO SCH (09:10)
[2017-04-28] MEDS: LISINOPRIL 5 MG TABLET PO SCH (09:10)
[2017-04-28] MEDS: POLYETHYLENE GLYCOL 3350 17 GM PACKET PO SCH (09:13)
[2017-04-28] MEDS: BUDESONIDE 0.5 MG/2 ML NEB INH SCH (09:50)
[2017-04-28] MEDS: FORMOTEROL FUMARATE NEB 20 MCG/2 ML INH SCH (09:50)
--- NOTE | 2017-04-28 10:22 | Discharge Plan ---
Discharge Plan Disposition: Home, Self Care Condition: Good Prescriptions: Aspirin [Aspirin EC] 81 mg PO DAILY #30 tablet. Atorvastatin Calcium 40 mg PO DAILY #30 tablet Clopidogrel [Plavix] 75 mg PO DAILY #30 tablet Lisinopril [Zestril] 10 mg PO DAILY #30 tablet Diet: Regular Activity Restrictions: No Restrictions Shower Restrictions: No Driving Restrictions: Yes Weight Bearing: Full Weight Additional Instructions or Follow Up instructions: You were admitted for symptoms of a stroke. 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 I spoke with Dr. Treviño's partner from cardiology who recommends that your primary care provider refers you to the Adult congenital heart disease clinic. You need a primary care provider, and possibly the doctor who your sees will see you. No Smoking: If you smoke, Please STOP! Call for help.
--- NOTE | 2017-04-28 10:24 | DISCHARGE SUMMARY ---
Discharge Summary Admit Date: 04/25/17 Discharge Date: 04/28/17 Discharging Provider: SATNAM Tian Primary Care Provider: none Code Status: Attempt Resuscitation Condition at Discharge: Good Discharge Disposition: 01 Home, Self Care - DIAGNOSES Admission Diagnoses: Cerebral infarction, unspecified (I63.9) Personal history of other diseases of the respiratory system (Z87.09) Discharge Diagnoses with Status of Each Condition: Cerebral infarction, unspecified- new on this admit, strict follow up with PCP recommended. Personal history of other diseases of the respiratory system - chronic, stable. CVA- new on this admit, care to continue per PCP referral. Expressive aphasia- new on this admit, stable. Atrial septal defect- chronic, stable. - HPI History of Present Illness: Mr. Mati Escalera is a very pleasant 42-year-old gentleman who has been having difficulties for the last 2 days he has had pressure in the right eye with difficulty focusing the right eye and he says he has been off balance veering to the left sometimes. It is not associated with headache. He says that his said he was confused today based on the fact that he meant to go into his daughter's room and went into the son's room instead. This is never happened to him before. He slept in which was unusual for him and he has been sleeping and since that time, he also has had some slurring of speech and increasing confusion. His last complaint is that his balance seems to be "off". He came to [facility] emergency department where he was evaluated and not felt to be high risk for stroke however CT angiogram found a right thalamic infarction/mass. - HOSPITAL COURSE Hospital Course: The following diagnoses were prevalent during this hospital stay: (1) Cerebrovascular accident (CVA)- A head MRI showed several small lesions consistent with thromboses, which is consistent with patient's presenting symptoms. He origionally presented with right sided weakness, altered mental status, and lethargy. These symptoms are improved. Patient was continuously monitored and was continued on ASA at 162mg PO, Lipitor, & Lisinopril. (2) History of asthma- The patient has a history of this and has clear lungs on exam. Patient's vital signs were monitored and he was monitored for signs of respiratory distress. (3) Thalamic infarct, acute- The patient underwent a brain MRI, CT scan with and without contrast of the brain, carotid ultrasound, and an echocardiogram today. The echocardiogram found a 4 mm atrial septal defect which may be the source of the patient's clots. The MRI also found several small lesions consistent with thromboses. The transfer was delayed due to difficulty getting Echo imaging over to the [facility]. The patient will likely undergo a repair of the atrial septal defect. Dr. Easton Treviño of cardiology was willing to accept, but the urgency became less as patient was stabilized. Patient was sent home as recommended by cardiology on Plavix, statin therapy, and ASA. Disposition: The patient was transported home via and is in stable/good condition. - ALLERGIES Allergies/Adverse Reactions: Allergies Allergy/AdvReac Type Severity Reaction Status Date / Time No Known Drug Allergies Allergy Verified 04/25/17 15:12 - MEDICATIONS Home Medications: Ambulatory Orders Medication Instructions Recorded Confirmed Albuterol 2.5 mg INH Q6H PRN 04/25/17 04/26/17 Fluticasone/Salmeterol [Advair 1 inh INH BID 04/25/17 04/26/17 100-50 Diskus] Fluticasone [Flonase] 1 sprays ELDON DAILY 04/26/17 04/26/17 Aspirin [Aspirin EC] 81 mg PO DAILY #30 tablet. 04/28/17 Atorvastatin Calcium 40 mg PO DAILY #30 tablet 04/28/17 Clopidogrel [Plavix] 75 mg PO DAILY #30 tablet 04/28/17 Lisinopril [Zestril] 10 mg PO DAILY #30 tablet 04/28/17 - PHYSICAL EXAM AT DISCHARGE General Appearance: positive: No acute distress, Alert Eyes Bilateral: positive: Normal inspection, PERRL ENT: positive: ENT inspection nml, Pharynx nml, No signs of dehydration Neck: positive: Nml inspection, Thyroid nml Respiratory: positive: Chest non-tender, No respiratory distress, Breath sounds nml Cardiovascular: positive: Regular rate & rhythm, Systolic murmur, Decreased pulse(s) Peripheral Pulses: positive: 2+ Abdomen: positive: Non-tender, No organomegaly, Nml bowel sounds, No distention Back: positive: Nml inspection Skin: positive: Color nml, No rash, Warm, Dry Extremities: positive: Non-tender, Full ROM, Nml appearance, No pedal edema Neurologic/Psychiatric: positive: Oriented x3, CN's nml (2-12), Motor nml, Sensation nml, Depressed mood/affect Reflexes: Bicep (R): 3+ (equal), Bicep (L): 3+ Physical Exam Other/Comments: EKG rhythm was sinus rhythm with bradycardia and heart rates 50-70. Borderline left axis deviation. Patient was continuously monitored on telemetry. - LABS Result Diagrams: 04/28/17 05:30 04/28/17 05:30 Other Lab Results: Vital signs; Blood pressures ranged from 138/82 upon admission, and 101/65 today. The lowest blood pressure was 95/62. Patient has remained afebrile for this hospital stay. The patient has required no oxygen during this stay and has oxygen saturations 93-98%. - DIAGNOSTIC IMAGING Diagnostic Imaging Results: Final report reviewed Diagnostic Imaging Results Comments: MRI BRAIN WITHOUT CONTRAST INDICATION: 42-year-old male with complaints of pressure behind right eye, confusion, slurred speech and balance issues. Has hypodensity in the right thalamus on head CT, concerning for recent infarction. MRI has been requested in further evaluation. TECHNIQUE: 1. T1 sagittal and fat-saturated T2 coronal. 2. Axial T1 MP RAGE, FLAIR, T2, T2* and DWI. COMPARISON: Head CT 04/25/2017. FINDINGS: Ventricular size is normal. There is a roughly 1.7 x 1.8 cm, confluent region of T2/FLAIR hyperintensity and diffusion restriction in the anterior aspect of the right thalamus. Laterally there probably is extension to involve the posterior limb of the internal capsule. There is no surrounding edema. There is mild localized mass effect with partial effacement of the third ventricle. Imaging findings are consistent with acute to early subacute infarction. The infarction also appears to involve the right mamillary body. No other diffusion restriction is demonstrated. There appear to be flow voids for the main intracranial arteries. No evidence of acute or chronic hemorrhage on T2*GRE sequence. A very mild amount of white matter disease is identified in the supratentorial brain, manifested as small T2 hyperintensities that are scattered throughout the deep and subcortical white matter in the frontal lobes. A small (4 x 2 mm) T2 hyperintense/T1 hypointense focus is identified in the left thalamus. However, the high T2 signal completely suppresses on the axial T2 FLAIR sequence, suggesting that this represents a dilated perivascular space rather than gliosis or other pathology. A roughly 6.5 x 2.5 mm focus of encephalomalacia is identified in the mesial, posterior right cerebellum (see image 8 of series 601 and image 26 of series 901 ). Consistent with the sequela of remote, minor, embolic type ischemic infarction. In addition, 2 subtle, tiny T2 hyperintensities are seen in the mid right cerebellum (see image 7 of series 601 and image 23 of series 901). Also, probably the sequela of remote, minor, embolic-type infarctions. No abnormal extraaxial fluid collection. No midline shift. Limited assessment of the orbits reveals no gross pathology. There is minimal mucosal thickening in the left maxillary sinus and in a few ethmoid air cells. The paranasal sinuses are otherwise clear. No mastoid or middle ear effusion is demonstrated. IMPRESSION: 1. Follow-up MRI confirms that the lesion in anterior right thalamus relates to recent (probably 7 days old or less) infarction. No complicating hemorrhage. Very mild localized mass effect is demonstrated with partial effacement of the third ventricle. The infarction also appears to involve the right mamillary body (see image 104 of series 305 and image 13 of series 601). 2. Also demonstrated are small foci of encephalomalacia in the right cerebellum , consistent with the sequela of remote, minor, embolic type ischemic infarctions. The etiology for these recent and remote infarctions in this young individual is unclear. No evidence of vasculitis or other intracranial arterial pathology on recent head CTA. Consider further assessment with neck CTA or MRA. CT HEAD WITHOUT AND WITH CONTRAST AND CT ANGIOGRAM HEAD INDICATION: 42-year-old male with 2 day history of feeling off balance and blurred vision in right eye. Please assess. TECHNIQUE: Head CT Sequential 5 mm axial images were obtained through the brain, prior to and following the CT angiogram. CT angiogram head 80 mL of Isovue-300 contrast were injected at a rapid rate through a large bore , antecubital intravenous catheter. The head was scanned helically during arterial phase. Data was reconstructed into 0.5 mm axial images. In addition, MIP reconstructions have been generated in multiple projections to allow better assessment of the intracranial arteries. In accordance with CT protocol optimization, one or more of the following dose reduction techniques were utilized for this exam: automated exposure control, adjustment of mA and/or KV based on patient size, or use of iterative reconstructive technique. COMPARISON: None. FINDINGS: Head CT There is mild generalized prominence of the cerebral cortical sulci. Ventricular size is normal. There is a roughly 1.3 x 1.3 cm hypodense lesion, centered in the anterior right thalamus with possible extension laterally to involve the posterior limb of the right internal capsule. There appears be mild associated mass effect with focal effacement of the third ventricle. No enhancement of this lesion is identified on postcontrast sequences. Attenuation of cortex and white matter is otherwise normal. No intracranial hemorrhage. No enhancing space-occupying mass lesion is demonstrated. There appears be normal intravascular contrast enhancement in the dural venous sinuses and deep venous structures. Noted is a rounded, roughly 1.5 cm diameter, midline retrocerebellar extra- axial fluid collection. This probably represents an arachnoid cyst. There appears be associated mass effect including a scalping of the inner table of the overlying squamous occipital bone. No significant mass effect on the cerebellum or vermis. The clinical significance of this presumed posterior fossa arachnoid cyst is doubtful. The mastoid air cells and middle ear cavities are clear. The imaged paranasal sinuses appear clear. CT angiogram head Anterior circulation: The internal carotid arteries appear widely patent bilaterally. No ICA aneurysm is demonstrated. The A1 segments of the anterior cerebral arteries are essentially codominant. An anterior communicating artery is demonstrated. There appears be good filling of the A2 and distal AMANDA branches bilaterally. No obvious AMANDA branch occlusion is demonstrated. The middle cerebral arteries are unremarkable. No aneurysm is demonstrated and there is no evidence of occlusion or hemodynamically significant stenosis affecting main branches of either MCA. There appear to be a similar number of opacified M3 and M4 branches bilaterally. Posterior circulation: The vertebral arteries and PICAs appear widely patent. No aneurysm at either PICA origin. The basilar artery, superior cerebellar arteries and posterior cerebral arteries appear widely patent. 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 There is a fairly large left posterior communicating artery that supplies the P2 and distal left [employer] branches. This represents a known anatomical variant ( type left [employer]). There probably is a tiny right posterior communicating artery. No aneurysms are identified arising from the basilar artery trunk or apex. IMPRESSION: Head CT 1. There is a roughly 1.3 x 1.3 cm hypodensity centered in the anterior right thalamus. There appears be mild localized mass effect with focal effacement of the third ventricle. No enhancement is demonstrated. This probably relates to recent infarction. MRI would be helpful in further evaluation. 2. Otherwise unremarkable head CT. CT angiogram head Unremarkable study. No evidence of occlusion or hemodynamically significant stenosis affecting main branches of the anterior or posterior circulations. In addition, no intracranial aneurysm is identified. ECHOCARDIOGRAM: 04/26/17 1. Mild concentric left ventricular hypertrophy. 2. Overall LV systolic function is normal with an EF of 70-75%. 3. Mild RV enlargement. 4. The RV systolic function is normal. 5. Contrast injection of agitated saline (8 ml saline mixed with 1ml of air) was positive for an atrial shunt. 6. There is a small secundum atrial septal defect measuring @ 4 mm in diameter. 7. Nor hemodynamically significant cardiac valve disease in noted. 8. Recommend cardiology evaluation. - FOLLOW UP Follow Up: Follow up with PCP within one week of discharge from acute care hospital. - TIME SPENT Time Spent in Discharge (Minutes): 60
[2017-04-28] MEDS: SODIUM CHLORIDE FLUSH 0.9% 10 ML SYRINGE IVP SCH (11:40)
[2017-04-28] MEDS ORDERED: CLOPIDOGREL 75 MG TABLET PO SCH (16:00)
[2017-04-28 16:14] VITALS: BP 121/84
== END 2017-04-28 16:18 | disposition home or self-care (01) | DRG 65 ==
LOC: ED 14:59 → MS2 17:54
PROVIDERS: ADMIT Hospitalist; ATTEND Nurse Practitioner
DX: I63.8 Other cerebral infarction (principal); G81.91 Hemiplegia, unspecified affecting right dominant side; Q21.2 Atrioventricular septal defect; R27.0 Ataxia, unspecified; R41.89 Other symptoms and signs involving cognitive functions and awareness; R47.81 Slurred speech; H53.8 Other visual disturbances; J45.909 Unspecified asthma, uncomplicated; G93.89 Other specified disorders of brain; R29.700 NIHSS score 0; Z79.51 Long term (current) use of inhaled steroids; Z79.82 Long term (current) use of aspirin; Z79.899 Other long term (current) drug therapy
CPT/HCPCS: 36415; 70496; 70551; 80048; 80053; 83690; 84484; 85025; 85610; 85730; 93005; 93306; 93880; 94640; 99284; 99285